=== PATIENT | female | born 1975 | race Caucasian/White ===

== ENCOUNTER 2024-10-23 15:20 | Emergency (ER) | payer BC, SELFPAY ==
[2024-10-23 15:23] VITALS: BP 143/103
[2024-10-23 16:19] LABS: ALT (SGPT) 19 U/L (0-35); AST (SGOT) 32 U/L (14-36); Albumin 4.1 g/dl (3.5-5.0); Alkaline Phosphatase 70 U/L (38-126); Blood Urea Nitrogen 23 mg/dl (7-17); Carbon Dioxide 27 mmol/L (22-30); Chloride 102 mmol/L (98-107); Glucose 115 mg/dl (70-99); Potassium 4.1 mmol/L (3.5-5.1); Sodium 138 mmol/L (135-145); Total Bilirubin 0.5 mg/dl (0.2-1.3); Total Protein 7.4 g/dl (6.3-8.2); eGFR > 60.00
[2024-10-23 16:23] LABS: Troponin I < 0.012 ng/ml
--- NOTE | 2024-10-23 18:18 | ED.GENMED ---
History of Present Illness
General
Chief Complaint: Fainting/Passed Out
Source: patient
Exam Limitations: none
Time Seen by Provider: 10/23/24 18:06
Nursing documentation reviewed up to this point in time: agreed with
History of Present Illness
History of Present Illness:
49-year-old female presents to the ER for evaluation. Patient had flulike symptoms on Saturday and was seen by family doctor tested for flu positive. Saturday patient was getting in the shower and felt very dizzy and lightheaded like she was going
to pass out. She sat on the toilet and has not reports her eyes rolled back of her head she looked like she was possibly foaming or drooling at the mouth was not responding for about a minute. was not sure if she had a seizure. Patient
has no prior history of seizures. She did have diarrhea at that time and was unaware that she moved her bowels. She had another episode of feeling very dizzy like she was going to pass out yesterday but did not do so. Today she was sent to the ER
by her family doctor.
Patient has been able to eat and drink.
She denies any headache, denies any abdominal pain.
She has had some intermittent vomiting diarrhea. She has not vomited today but she has had some diarrhea. She has been drinking fluids.
Patient does not smoke. She is not on oral contraceptives. No prior history of DVT PE. She denies any associated chest pain shortness of breath
Past History
Past History
ED Past Surgical History: None
Review of Systems
Review of Systems
Allergies reviewed?: Yes
Other source history: family
All Other Systems: ROS reviewed and negative except as documented in HPI and ROS
Constitutional: Reports no symptoms; Denies fever
Respiratory: Reports no symptoms
Cardiac: Reports no symptoms
ABD/GI: Reports vomiting and diarrhea; Denies abdominal pain
: Reports no symptoms
Skin: Reports no symptoms
Neurological: Reports no symptoms
Hematologic/Lymphatic: Reports no symptoms
Psychiatric: Reports no symptoms
Phy Exam
General Physical Exam
General Presentation: no apparent distress
General age: appears stated age
General Skin: warm and dry
General Habitus: normal
General Mental: alert
General Hydration: dry mucous membranes
Cardiovascular Exam
Cardiovascular Exam: regular rate/rhythm, no murmur and normal peripheral pulses
Pulmonary Exam
Pulmonary Exam: lungs clear and no respiratory distress
Gastrointestinal Exam
Gastrointestinal Exam: non tender and soft
Neurological Exam
Neurological Exam: alert, oriented x3, no motor deficits, no sensory deficits and speech normal
Musculoskeletal Exam
Musculoskeletal Exam: full ROM
Skin Exam
Skin Exam: normal color and warm/dry
Psychiatric Exam
Psychiatric Exam: normal mood/affect
Course
Orders/Labs/Results
Orders:
Orders
10/23/24 15:28
ECG [Electrocardiogram (*1)] Urgent
Reason for Study: Syncope
10/23/24 15:29
EKG- Treatment ONCE
10/23/24 15:45
Comprehensive Metabolic Panel Urgent
HCG, Serum Qualitative Screen Urgent
Comment: ADD ON
Troponin I Urgent
10/23/24 18:27
IV Insert/Care/Rem.- Treatment PRN
0.9% Sodium Chloride 1000 ml [Nss] 1,000 ml IV BOLUS
10/23/24 18:31
Complete Blood Count/With Diff Urgent
10/23/24 18:34
Add On- LAB Urgent
Tests Added?: hcg qualitative
10/23/24 19:15
CT Head W/o Iv Contrast Urgent
Comment:
Reason For Exam: syncope/seizure
Abnormal Lab Results
10/23/24 10/23/24
15:45 18:31
RBC 5.59 H 10^6/uL
(4.20-5.40)
MCH 26.7 L pg
(27.0-31.0)
MCHC 31.8 L g/dL
(33.0-37.0)
Monocytes % 11.0 H %
(1.7-9.3)
BUN 23 H mg/dl
(7-17)
Glucose 115 H mg/dl
(70-99)
10/23/24 18:31
10/23/24 15:45
Vital Signs
Initial and Last Documented VS:
Initial Vital Signs
Temp Pulse Resp BP Pulse Ox
98.2 F 98 20 143/103 95
10/23/24 15:23 10/23/24 15:23 10/23/24 15:23 10/23/24 15:23 10/23/24 15:23
Last Documented Vital Signs
Temp Pulse Resp BP Pulse Ox
98.2 F 98 20 113/77 94
10/23/24 15:23 10/23/24 15:23 10/23/24 15:23 10/23/24 19:06 10/23/24 19:08
Senior Operations Manager consulted with Physician
Senior Operations Manager consulted with physician?: Yes
Name of Physician Consulted: cristal
MDM/Problems Addressed
Differential Diagnosis Includes:
Not limited to syncope, less likely seizure, dehydration, flu
MDM/Problems Addressed:
Patient was diagnosed with flu on Saturday and on Saturday had episode as described above where she was standing in the shower felt lightheaded sat down on the toilet and was very dizzy. As documented her was there her eyes rolled back in
her head and he was not sure if she had a seizure though he did not witness any seizure activity. He did have an episode of diarrhea incontinence at that time.
Patient is no history of seizures and this was most likely more of a syncopal event she felt dizzy and felt she was going to pass out. Since then patient has had diarrhea in addition to intermittent vomiting. She presents here awake alert no acute
distress was given fluids. She is afebrile nontachycardic normal white count stable hemoglobin, BUN with 23. Patient did appear mildly dry and was given fluids. CAT scan negative and EKG nml .
Pt after fluids feeling much better drinking shellie jack.
She has zofran at home.
She feels want to go home likely since syncope from viral syndrome as she has the flu. Discussed with patient we will close outpatient follow-up family doctor
*Critical Care Note
Total Time (30-74mins, 75-104mins- exclusive of procedures): Not Applicable
ED Attending Note
-
Portions of this chart may have been created with voice recognition software.� Occasional wrong word or��sound alike� substitutions may have occurred due to the inherent limitations of voice recognition software.
Discharge Plan
Departure
Patient Disposition: Home (Routine Discharge)
Date of Disposition: 10/23/24
Time of Disposition: 21:06
Patient with high blood pressure during this ER visit?: Yes
Condition: Fair
Covid-19: Not Applicable
Discharge Problem:
Syncope, Flu
Instructions: Syncope (Fainting) (DC), Flu in adults - Discharge instructions, BLOOD PRESSURE
Referrals:
Yissel Norwood, DO [Family Provider] -
Stand Alone Forms: Return to Work
Activity Restrictions/Additional Instructions:
As discussed be sure to stay well-hydrated. You may take your Zofran as needed for nausea. It is likely that you had an event of passing out(likely from the flu) versus seizure. However it is important that you closely follow-up with your family
doctor for further reevaluation. You were mildly dehydrated here in the ER and were given fluids. Otherwise your labs are unremarkable.
Return however to the ER if any worsening of symptoms.
Interventions
Interventions:
*General Assessment Last Done: 10/23/24 15:23
*Neglect/Abuse Screening Last Done: 10/23/24 19:07
ED- Cardiac Assessment Last Done: 10/23/24 19:07
ED- Neurological Assessment Last Done: 10/23/24 19:07
Discharge Date and Time
Print Language: LEBANESE
[2024-10-23 18:40] LABS: % Basophils 0.6 % (0-2); % Eosinophils 0.8 % (0-6); % Immature Granulocytes 0.4 % (0-0.5); % Lymphocytes 25.7 % (20.5-51.1); % Neutrophils 61.5 % (42.2-75.2); Absolute Lymphocytes 1.4 10^3/uL (1.2-3.4); Absolute Monocytes 0.6 10^3/uL (0.1-0.6); Absolute Neutrophils 3.3 10^3/uL (1.4-6.5); Hematocrit 46.8 % (37.0-47.0); Hemoglobin 14.9 g/dL (12.0-16.0); Mean Corp Hgb Conc. 31.8 g/dL (33.0-37.0); Mean Corpuscular Hgb 26.7 pg (27.0-31.0); Mean Corpuscular Volume 83.7 fL (81.0-99.0); Mean Platelet Volume 10.1 fL (7.4-10.4); Nucleated Red Blood Cells % 0 %; Platelet Count 336 10^3/uL (130-400); Red Blood Cell Count 5.59 10^6/uL (4.20-5.40); Red Cell Dist. Width 13.3 % (11.5-14.5); White Blood Cell Count 5.3 10^3/uL (4.8-10.8)
[2024-10-23] MEDS: NSS 1000 IV (19:03)
[2024-10-23 19:05] LABS: HCG, Serum Qualitative Screen Negative
[2024-10-23 19:06] VITALS: BP 113/77
[2024-10-23 19:07] VITALS: BMI 33.6
[2024-10-23 20:35] VITALS: BP 115/50
[2024-10-23 21:00] VITALS: BP 128/71
== END 2024-10-23 21:23 | disposition home or self-care (01) ==
LOC: EMR 15:20
PROVIDERS: Emergency Medicine; EMERGENCY PHYSICIAN Student in an Organized Health Care Education/Training Program; FAMILY PHYSICIAN Family Medicine
DX: R55 Syncope and collapse (principal); J11.1 Influenza due to unidentified influenza virus with other respiratory manifestations
CPT/HCPCS: 99284; 96360; 96361; 70450; 80053; 84484; 84703; 85025; 93005